=== PATIENT | male | born 1940 | race Caucasian/White ===

== ENCOUNTER 2021-07-25 09:57 | Inpatient (IN) ==
[2021-07-25 10:49] LABS: Basophils # (auto) 0.02 K/uL (0-0.2); Basophils % (auto) 0.3 %; Eosinophils # (auto) 0.14 K/uL (0-0.5); Hematocrit (blood only) 41.9 % (42-52); Hemoglobin 14.1 g/dL (14.0-18.0); Immature Granulocytes # (auto) 0.02 K/uL (0.00-0.02); Immature Granulocytes % (auto) 0.3 %; Lymphocytes # (auto) 1.16 K/uL (1.2-3.4); Lymphocytes % (auto) 16.2 %; Mean Corpuscular Hemoglobin 28.7 pg (25-34); Mean Corpuscular Hgb Conc 33.7 g/dL (32-36); Mean Corpuscular Volume 85.3 fL (80-100); Mean Platelet Volume 7.9 fL (7.4-10.4); Monocytes # (auto) 0.62 K/uL (0.11-0.59); Monocytes % (auto) 8.7 %; Neutrophils # (auto) 5.19 K/uL (1.4-6.5); Neutrophils % (auto) 72.5 %; Platelet Count 285 K/uL (130-400); RDW Coefficient of Variation 14.2 % (11.5-14.5); RDW Standard Deviation 44.6 fL (36.4-46.3); Red Blood Count 4.91 M/uL (4.7-6.1); White Blood Count 7.15 K/uL (4.8-10.8)
[2021-07-25 11:04] LABS: Prothrombin Time 10.9 Seconds (9.0-12.0)
--- NOTE | 2021-07-25 11:12 | XRay Report ---
XR chest 1V portable CLINICAL HISTORY: Atypical chest pain TECHNIQUE: Single frontal radiograph of the chest was obtained. Comparison: None available at the time of this dictation. FINDINGS: No lines and tubes are seen. The cardiac silhouette is partially visualized. Mild leftward midline sh ift is seen. There is partial opacification of the right lung. There is a large right pleural effusio n. IMPRESSION: Large right pleural effusion with leftward midline shift. Partial opacification of the right lung lik bandar represent atelectasis with or without superimposed pneumonia/aspiration. ACT 112: Negative or not required by law. Electronically signed by: Vidal Sethi M.D. 07/25/2021 11:10 AM
[2021-07-25 11:36] LABS: Albumin Level 3.8 gm/dl (3.4-5.0); BUN Creatinine Ratio 16.4 (10-20); Bilirubin,Total 0.6 mg/dl (0.2-1.0); Calcium 9.5 mg/dl (8.5-10.1); Creatinine Clr Calc Pharmacy 45.9 ml/min; Est GFR (Non-African American) 55.3 ml/min; Globulin 3.7 gm/dl (2.5-4.0); Potassium 4.4 mmol/L (3.5-5.1); Total Protein 7.5 gm/dl (6.0-8.3)
[2021-07-25 12:00] LABS: Troponin I 0.03 ng/ml (0-0.04)
--- NOTE | 2021-07-25 12:39 | History & Physical Report ---
Date of Service July 25, 2021 Assessment & Plan (1) Collapse of right lung: (2) Lymphadenopathy: (3) Pleural effusion, right: Plan: - Admit to pcu - Consult pulmonology for further lung workup, possible thoracentesis, biopsy to r/o malignancy - CT abd/pelvis and lung conducted as outpatient earlier today 07/25/21: reviewed in [facility] by myself, and with the patient at bedside. The radiologist with the following impression: Complete collapse of the right upper lobe of the lung with suspected obstruction. Lobulated appearance of the right hilum is suspicious for a mass.2. Extensive lymphadenopathy in the chest, for which metastatic disease must be considered.3. Large right pleural effusion. Suspected plaque-like pleural thickening in the right hemithorax.4. Bilateral, indeterminate renal lesions for which further evaluation with renal protocol CT abdomen with without contrast is recommended.5. Status post bilateral inguinal herniorrhaphies. Findings are compatible with fat containing, bilateral, direct inguinal hernias medial to the postsurgical change. There is bulging of the bladder towards the left inguinal hernia. - Currently on 2 L via NC, sats at 95%, does not wear o2 at baseline - Hx of smoking but quit in the 80s - No alcohol use - Pt would prefer to use [facility] for oncology due to proximity and convenience if needed during this hospital stay - Has had colonoscopies - Consult palliative care (4) Renal lesion: Plan: - Seen on CT as described above, possible mets? consider CT abd w/o contrast to further assess - Cr and BUN stable currently (5) Hernia: Plan: - Noted on imaging, consider consult general surgery with pain worsening x 1 week. No strangulation seen on imaging studies as above. Pain control. Continue bowel regimen to prevent constipation with miralax and dulcolax daily - (6) HTN (hypertension): Plan: - Cont metoprolol 25 mg daily, asa 81 mg daily (7) HLD (hyperlipidemia): Plan: - Cont pravastatin 10 mg daily (8) BPH (benign prostatic hyperplasia): Plan: - Hx of such, cont finasteride, tamsulosin (9) PAT (paroxysmal atrial tachycardia): Plan: - Hx of such, on tele - Recent history of holter monitor submission for this, in process. (10) Mitral valve regurgitation: Plan: - Consider echo, soft murmur on exam DVT ppx: -teds, scds, lovenox subq to start tomorrow, dont give prior to thoracentesis CODE: DNR/DNI Dispo: From home, likely to remain in the hospital x 1-2 days. History of Present Illness Chief Complaint: Shortness of breath, abdominal pain Primary Care Provider: Graham Wilhelm, This is an 81 yo M with PMHx of HTN, HLD, paroxysmal atrial tachycardia, mitral valve regurg, who presents to the ER from outpatient [facility] office due to abnormal findings on CT abd/pelvis. He initially presented to outpatient office today with complaints of abdominal pain with new bulge from a previous hernia repair site, and was complaining of acute lower quadrant pain. He reports that having abdominal pain x1 week, pain worsened 30 minutes after eating, and im proved upon having a bowel movement. Intermittently has issues with constipation. Approximately 1 week ago he was seen in PCPs office for acute shortness of breath, palpitations and felt as if he was going to pass out. Holter monitor was placed on him and he only recently turned that in to have it read, he has had paroxysmal atrial tachycardia on and off throughout his life. Today upon having CT of the abdomen pelvis, new findings of complete right upper lobe collapse was found, large right pleural effusion. Shortness of breath has been progressively increasing over the past 1 week. He reports that he was having difficulty walking to and from different rooms in his house and simple things such as putting on his shoes were difficult. Has a cough with clear thick sputum production, denies hemoptysis. He denies any lightheadedness or dizziness or feeling like he was going to pass out recently however did 1 week ago and that is why Holter monitor was ordered. He denies any issues with eating or drinking, weight loss, or night sweats. His daughter Christi is sitting at bedside. I went over her CT scans with them and showed pictures of his lungs and abdomen and answered all their questions and concerns. Allergies Allergy/AdvReac Type Severity Reaction Status Date / Time No Known Allergies Allergy Mild Verified 07/25/21 11:47 Home Medications Medication Instructions Recorded Confirmed Type Flonase 2 spray DANE DAILY 07/25/21 07/25/21 History aspirin 81 mg tablet,delayed 81 mg PO QAM 07/25/21 07/25/21 History release finasteride 5 mg tablet 5 mg PO QAM 07/25/21 07/25/21 History metoprolol succinate 25 mg 25 mg PO QAM 07/25/21 07/25/21 History tablet,extended release 24 hr omeprazole 40 mg capsule,delayed 40 mg PO DAILY@1800 07/25/21 07/25/21 History release pravastatin 10 mg tablet 10 mg PO QAM 07/25/21 07/25/21 History tamsulosin 0.4 mg capsule 0.4 mg PO DAILY@1800 07/25/21 07/25/21 History Past Med/Surg History Medical History (Updated 07/25/21 @ 16:22 by Roscoe Dozier MD) Abnormal CT scan, chest Surgical History (Updated 07/25/21 @ 12:33 by Bianca Meraz PA-C) H/O right inguinal hernia repair 10/25/2012. Laproscopic repair by Dr. Martel Hx of inguinal hernia repair 05/11/1995 Family History (Updated 07/25/21 @ 12:30 by Bianca Meraz PA-C) Father Cancer Hypertension Mother Cancer Brother Diabetes Stroke Social History Smoking Status: Former smoker Second Hand Exposure: No; Do You Dip or Chew Tobacco: No; Tobacco Cessation Education Requested by Patient: No Hx Alcohol Use: No Hx Substance Use: No Preferred Language: [place] Communication Ability: Effective Daub Color Mixer Required: No Beliefs That Will Affect Care: None Current Living Situation: Family Current Living Situation Comment: With oldest daughter Other Information That Helps Us Care for You: No Feels Safe at Home: Yes Safety Concerns: Feels Safe At This Time Assistive Devices: Denture - Upper, Denture - Lower and Glasses Review of Systems Review of Systems: Constitutional: No fever, sweats or chills Eyes: No diplopia, no worsening or blurred vision ENT: normal hearing, no trouble swallowing Respiratory: As per HPI, shortness of breath with ADLs and exertion but not at rest, + cough, + clear white sputum, no hemoptysis Cardiovascular: No chest pain, tightness or palpitations Abdomen: No pain, nausea, vomiting, diarrhea or constipation Musculoskeletal: No joint pain, calf pain, swelling Neurologic: No weakness, numbness/tingling, or balance problems Psychiatric: No anxiety or depression Skin: No rash or itch Physical Exam Physical Exam: General: awake, alert, no apparent distress, appears younger than stated age Head: Normocephalic, atraumatic ENT: PERRL, EOMI, no pharyngeal exudate, mucous membranes moist Chest: Significantly diminished breath sounds on the right, absent at the base. On 2L via NC. Cardiac: Regular rate and rhythm, +soft murmur, no JVD, normal peripheral pulses, good capillary refill Abdominal: NABS x 4 quadrants, soft, nondistended, + minimal tenderness to palpa tion in Left lower quadrant, no rebound or guarding Extremities: Normal inspection, no peripheral edema or erythema, calfs nontender to palpation Psych: Normal mood and affect Neuro: AAO x 3, strength intact bilaterally and rated 5/5, no motor deficits, speech is clear, no peripheral sensory deficits Results & Data Results & Data ([facility]) Vital Signs (Past 12 Hours) Vital Signs Temp Pulse Pulse Resp BP BP Pulse Ox 07/25/21 11:00 74 18 133/75 95 07/25/21 10:55 76 77 18 131/76 93 07/25/21 10:54 72 21 07/25/21 10:34 87 21 131/76 07/25/21 10:12 36.7 C 87 18 93 Laboratory Results 07/25/21 07/25/21 07/25/21 Unknown 10:51 10:40 WBC RBC Hgb Hct MCV MCH MCHC RDW Std Deviation RDW Coeff of Jay Plt Count MPV Immature Gran % (Auto) Neut % (Auto) Lymph % (Auto) [place] % (Auto) Eos % (Auto) Baso % (Auto) Neut # (Auto) Lymph # (Auto) [place] # (Auto) Eos # (Auto) Baso # (Auto) Immature Gran # (Auto) PT INR Sodium Potassium Chloride Carbon Dioxide Anion Gap BUN Creatinine Est Cr Clr Drug Dosing Est GFR ( Amer) Est GFR (Non-Af Amer) BUN/Creatinine Ratio Glucose Calcium Total Bilirubin AST ALT Alkaline Phosphatase Troponin I B-Natriuretic Peptide 41 Total Protein Albumin Globulin Albumin/Globulin Ratio Lipase Procalcitonin < 0.05 SARS-CoV-2, RNA, NAAT NEGATIVE 07/25/21 07/25/21 07/25/21 10:40 10:40 10:40 WBC 7.15 RBC 4.91 Hgb 14.1 Hct 41.9 L MCV 85.3 MCH 28.7 MCHC 33.7 RDW Std Deviation 44.6 RDW Coeff of Jay 14.2 Plt Count 285 MPV 7.9 Immature Gran % (Auto) 0.3 Neut % (Auto) 72.5 Lymph % (Auto) 16.2 [place] % (Auto) 8.7 Eos % (Auto) 2.0 Baso % (Auto) 0.3 Neut # (Auto) 5.19 Lymph # (Auto) 1.16 L [place] # (Auto) 0.62 H Eos # (Auto) 0.14 Baso # (Auto) 0.02 Immature Gran # (Auto) 0.02 PT 10.9 INR 1.0 Sodium 136 Potassium 4.4 Chloride 102 Carbon Dioxide 28 Anion Gap 6 BUN 20 Creatinine 1.22 Est Cr Clr Drug Dosing 45.9 Est GFR ( Amer) 64.0 Est GFR (Non-Af Amer) 55.3 BUN/Creatinine Ratio 16.4 Glucose 104 H Calcium 9.5 Total Bilirubin 0.6 AST 17 ALT 10 Alkaline Phosphatase 71 Troponin I 0.03 B-Natriuretic Peptide Total Protein 7.5 Albumin 3.8 Globulin 3.7 Albumin/Globulin Ratio 1.0 Lipase 40 Procalcitonin SARS-CoV-2, RNA, NAAT Diagnostic Findings Chest X-Ray 07/25/21 10:39 XR chest 1V portable CLINICAL HISTORY: Atypical chest pain TECHNIQUE: Single frontal radiograph of the chest was obtained. Comparison: None available at the time of this dictation. FINDINGS: No lines and tubes are seen. The cardiac silhouette is partially visualized. Mild leftward midline shift is seen. There is partial opacification of the right lung. There is a large right pleural effusion. IMPRESSION: Large right pleural effusion with leftward midline shift. Partial opacification of the right lung likely represent atelectasis with or without superimposed pneumonia/aspiration. ACT 112: Negative or not required by law. Electronically signed by: Vidal Sethi M.D. 07/25/2021 11:10 AM ECG Additional Comments: 25-JUL-2021 10:31:26 [facility]-EDSTAT ROUTINE RETRIEVAL Poor data quality, interpretation may be adversely affected Sinus rhythm with 1st degree A-V block with Premature supraventricular complexes Possible Anterior infarct , age undetermined Abnormal ECG When compared with ECG of 21-JUL-1996 10:37, Premature supraventricular complexes are now Present NC interval has increased Vent. rate has increased BY [address] no longer elevated in Anterior leads Nonspecific T wave abnormality now evident in Anterior leads 25mm/s10mm/[id number] 241CID: 15Referred by: REFERRED SELF Unconfirmed Vent. rate 86 BPM NC interval 228 ms QRS duration 84 ms QT/QTc 350/418 ms Code Status & VTE Plan Code Status DNR/DNI - Discussed with patient and his daughter at bedside Supervising Physician Co-Signing Physician Notes This is an attending cosign note for full report and documentation please see full note by DARIUS. Patient was seen and examined by myself and agree with assessment and plan. Following is a synopsis. Patient presenting from general surgery's office after patient following up for abdominal pain for hernia repair history. Patient also noted to be complaining of shortness of breath. Patient noted to have collapse of the right lung with pleural effusions and masses concerning for malignancy. Head atraumatic chest diminished on the right side crackles noted. Left lower quadrant tenderness to palpation. Alert and oriented. Nonverbal evaluation. General surgery evaluation. Thoracentesis will be needed. Cytology sent. Oncology consultation. Palliative consultation.
[2021-07-25] MEDS ORDERED: ACETAMINOPHEN 325 MG TAB PO PRN (14:13)
[2021-07-25] MEDS ORDERED: ONDANSETRON INJ 2 MG/ML 2 ML VIAL IV PRN (14:13)
[2021-07-25] MEDS: bisacodyL 5 MG TABEC PO SCH (14:49)
[2021-07-25] MEDS: POLYETHYLENE (MIRALAX) 17 GM PACK PO SCH (14:49)
--- NOTE | 2021-07-25 14:58 | Pulmonary Consultation ---
Date of Consultation July 25, 2021 Assessment & Plan (1) Pleural effusion, right: 2.3 L of pleural fluid was removed from the right hemithorax via thoracentesis today. Pleural fluid will be sent for cytology, cultures and chemistries. Highly suspect malignant lesion. (2) Abnormal CT scan, chest: Patient with large mediastinal adenopathy. Will try to coordinate with anesthesia and perform EBUS tomorrow to obtain further tissue for diagnosis. (3) Collapse of right lung: May need radiation to the right upper lobe given airway narrowing versus airway stent. Airway stent evaluation would need to be completed at a tertiary care center. We will first see clinical response of thoracentesis. Thanks for the consult. Will follow with primary team. History of Present Illness Reason for Consultation: Right upper lobe collapse and large pleural effusion Attending Physician: Henri Abad MD History of Present Illness 81-year-old male with history of paroxysmal atrial tachycardia, mitral valve regurgitation, hypertension hyperlipidemia who presented to the ER from his outpatient primary care provider's office. He presented with abdominal pain to his outpatient office and they ordered a CT abdomen/pelvis. A large right pleural effusion was seen. Dedicated CT chest was obtained which demonstrated right upper lobe airway narrowing and collapse. Large effusion was described. There is also massive subcarinal lymphadenopathy. Patient endorses shortness of breath and cough for the past week. He is a former smoker. Patient actually reports cough for the past week and shortness of breath that has been increasing over the past couple of months. No changes in his weight. Appetite is still good. Labs reviewed. No coagulopathy. Platelets within normal limits. Allergies Allergy/AdvReac Type Severity Reaction Status Date / Time No Known Allergies Allergy Mild Verified 07/25/21 11:47 Home Medications Medication Instructions Recorded Confirmed Type Flonase 2 spray DANE DAILY 07/25/21 07/25/21 History aspirin 81 mg tablet,delayed 81 mg PO QAM 07/25/21 07/25/21 History release finasteride 5 mg tablet 5 mg PO QAM 07/25/21 07/25/21 History metoprolol succinate 25 mg 25 mg PO QAM 07/25/21 07/25/21 History tablet,extended release 24 hr omeprazole 40 mg capsule,delayed 40 mg PO DAILY@1800 07/25/21 07/25/21 History release pravastatin 10 mg tablet 10 mg PO QAM 07/25/21 07/25/21 History tamsulosin 0.4 mg capsule 0.4 mg PO DAILY@1800 07/25/21 07/25/21 History Patient History Medical History (Updated 07/25/21 @ 16:22 by Roscoe Dozier MD) Abnormal CT scan, chest Surgical History (Updated 07/25/21 @ 12:33 by Bianca Meraz PA-C) H/O right inguinal hernia repair 10/25/2012. Laproscopic repair by Dr. Martel Hx of inguinal hernia repair 05/11/1995 Family History (Updated 07/25/21 @ 12:30 by Bianca Meraz PA-C) Father Cancer Hypertension Mother Cancer Brother Diabetes Stroke Social History Smoking Status: Former smoker Second Hand Exposure: No; Do You Dip or Chew Tobacco: No; Tobacco Cessation Education Requested by Patient: No Hx Alcohol Use: No Hx Substance Use: No Preferred Language: Kiswahili Communication Ability: Effective Trimming Department Blocker Required: No Beliefs That Will Affect Care: None Current Living Situation: Family Current Living Situation Comment: With oldest daughter Other Information That Helps Us Care for You: No Feels Safe at Home: Yes Safety Concerns: Feels Safe At This Time Assistive Devices: Denture - Upper, Denture - Lower and Glasses Review of Systems Review of Systems: All systems reviewed & are unremarkable except as noted in HPI & below Results & Data Results & Data ([place]) Vital Signs (Past 12 Hours) Vital Signs Temp Pulse Pulse Resp BP BP BP 07/25/21 14:16 37 C 80 18 161/88 H 07/25/21 13:30 62 21 07/25/21 13:01 75 22 132/95 07/25/21 13:00 72 19 07/25/21 12:31 73 24 151/79 H 07/25/21 12:30 74 17 07/25/21 12:01 75 23 07/25/21 12:00 74 21 133/65 07/25/21 11:30 73 20 135/79 07/25/21 11:00 74 18 133/75 07/25/21 10:55 76 77 18 131/76 07/25/21 10:54 72 21 07/25/21 10:34 87 21 131/76 07/25/21 10:12 36.7 C 87 18 Pulse Ox 07/25/21 14:16 95 07/25/21 13:30 96 07/25/21 13:01 96 07/25/21 13:00 96 07/25/21 12:31 97 07/25/21 12:30 96 07/25/21 12:01 96 07/25/21 12:00 96 07/25/21 11:30 90 07/25/21 11:00 95 07/25/21 10:55 93 07/25/21 10:54 07/25/21 10:34 07/25/21 10:12 93 PG Care Time/CCT Total # of Minutes Spent Total Time Spent with Patient: Total time spent is greater than 50% in coordination of care (as documented) at patient's floor/unit and/or counseling patient: Coding Level of Care Code 00753 Initial Inpt Care Lvl 3 Diagnoses Pleural effusion, right J90 Collapse of right lung J98.[address] scan, chest R93.89
--- NOTE | 2021-07-25 15:17 | Emergency Department Note ---
Impression & Plan Pleural effusion, right, Collapse of right lung, Lymphadenopathy, Dyspnea on minimal exertion, Borderline low oxygen saturation level ED Provider Note NAME: ALEKSANDRA ISAACS AGE: 81 SEX: M ARRIVES VIA: Walk-In INFORMANT: Patient ED PROVIDER(S): Jonah Merrill MD CHIEF COMPLAINT: SOB, referred. Abnormal CT. PLAN: Disposition: Admit MEDICAL DECISION MAKING: The patient is a pleasant 81-year-old gentleman who presents to the emergency department referred from his [facility] PCPs office for outpatient CT scan that demonstrated findings of large right-sided pleural effusion with suspected mediastinal mass and metastatic disease. The study was performed in the setting of the patient having shortness of breath for the past month. Patient denies any fevers, chills, nausea, vomiting, diarrhea or urinary symptoms. He does report having semi-productive cough for the past month.He denies any prior history of cardiac disease or blood clots. He has a remote smoking history. On arrival the patient is fatigued appearing, mildly dyspneic but no acute distress, afebrile stable vital signs. His O2 saturation is 90% and greater though he does become easily dyspneic with minimal exertion and so was placed on 2 L nasal cannula. EKG without overt acute ischemia. Chest x-ray demonstrates large right-sided pleural effusion suspected compressive atelectasis. WBC, Hbg, platelets wnl. Chemistry without acidosis. Electrolytes unremarkable. LFTs without significant abnormality. Troponin 0.03, wnl. BNP wnl. Procalcitonin is undetectable. Covid-19 RNA, NAAT negative. Given the patient's CT findings in the setting of his symptoms he did agree with plan for admission. Case was discussed with Chayo Villegas, [facility] PAC, with Dr. Wheeler [facility] hospitalist who will evaluate the patient for admission. Triage Nursing notes reviewed and agree them. Prior medical records reviewed Vital Signs: reviewed and remarkable for low O2 saturation. Differential diagnosis: Reactive airway disease, pneumonia, pneumothorax, COPD, CHF, infections, cardiac ischemia, pulmonary embolism, musculoskeletal, gastrointestinal, as well as other pathologies. ER treatment provided: See below. Diagnostics interpreted by me: ECG: Sinus rhythm, 75 bpm, PSVCs, nonspecific TWA, no overt ST elevation or depression. Cardiac Monitoring: An order for continuous cardiac monitoring was placed and demonstrated Sinus rhythm, 75 bpm, PSVCs. Laboratory studies: See below Imaging studies: See below Consultation(s): Chayo Villegas, [facility] PAC, with Dr. Wheeler [facility] hospitalist who will evaluate the patient for admission. HPI: The patient is a pleasant 81-year-old gentleman who presents to the emergency department referred from his [facility] PCPs office for outpatient CT scan that demonstrated findings of large right-sided pleural effusion with suspected mediastinal mass and metastatic disease. The study was performed in the setting of the patient having shortness of breath for the past month. Patient denies any fevers, chills, nausea, vomiting, diarrhea or urinary symptoms. He does report having semiproductive cough for the past month.He denies any prior history of cardiac disease or blood clots. He has a remote smoking history. ROS: See above HPI for pertinent positives & negatives. A total of 10 systems reviewed and were otherwise negative. VITALS:See Below PHYSICAL EXAMINATION: GENERAL: Awake, alert, fatigued-appearing, in no distress HENT: Normocephalic, atraumatic. Oropharynx with dry mucous membranes and otherwise unremarkable. EYES: Normal conjunctiva. Sclera non-icteric. NECK: Supple. No nuchal rigidity. FROM. No JVD. RESPIRATORY: Diminished BS of right lung henry. Dyspneic appearing without significant WOB. CARDIAC: Regular rate, normal rhythm. Extremities warm and well perfused. Pulses equal. ABDOMEN: Soft, non-distended. No tenderness to palpation. No rebound or guarding. No masses. RECTAL: Deferred. MUSCULOSKELETAL: Chest examination reveals no tenderness. The back is symmetrical on inspection without obvious abnormality. There is no CVA tenderness to palpation. No joint edema. LOWER EXTREMITIES: Calves are equal size bilaterally and non-tender. No edema. No discoloration. NEURO: Normal sensorium. No sensory or motor deficits noted. SKIN: No rash or jaundice noted. Jonah Merrill MD Past Med/Surg History Medical History Abnormal CT scan, chest BPH (benign prostatic hyperplasia) GERD (gastroesophageal reflux disease) HLD (hyperlipidemia) HTN (hypertension) Mitral valve regurgitation PAT (paroxysmal atrial tachycardia) Surgical History H/O right inguinal hernia repair 10/25/2012. Laproscopic repair by Dr. Martel Hx of inguinal hernia repair 05/11/1995 Family History Father Cancer Hypertension Mother Cancer Brother Diabetes Stroke Social History Smoking Status: Former smoker Second Hand Exposure: No; Do You Dip or Chew Tobacco: No; Tobacco Cessation Education Requested by Patient: No Hx Alcohol Use: No Hx Substance Use: No Preferred Language: Indonesian Communication Ability: Effective Radio Journalist Required: No Beliefs That Will Affect Care: None Current Living Situation: Family Current Living Situation Comment: With oldest daughter Other Information That Helps Us Care for You: No Feels Safe at Home: Yes Safety Concerns: Feels Safe At This Time Assistive Devices: None Allergies Allergies Allergy/AdvReac Type Severity Reaction Status Date / Time No Known Allergies Allergy Mild Verified 07/25/21 11:47 Home Meds Home Medications Medication Instructions Recorded Confirmed Flonase 2 spray DANE DAILY 07/25/21 07/25/21 aspirin 81 mg tablet,delayed 81 mg PO QAM 07/25/21 07/25/21 release finasteride 5 mg tablet 5 mg PO QAM 07/25/21 07/25/21 metoprolol succinate 25 mg 25 mg PO QAM 07/25/21 07/25/21 tablet,extended release 24 hr omeprazole 40 mg capsule,delayed 40 mg PO DAILY@1800 07/25/21 07/25/21 release pravastatin 10 mg tablet 10 mg PO QAM 07/25/21 07/25/21 tamsulosin 0.4 mg capsule 0.4 mg PO DAILY@1800 07/25/21 07/25/21 Results & Data (ED) Vital Signs Vital Signs - 24 hr 07/25/21 10:12 07/25/21 10:34 07/25/21 10:54 Temperature 36.7 C Temperature Source Oral Pulse Rate 87 87 72 Pulse Rate [Apical] Pulse Rate from SpO2 Sensor Pulse Rhythm Pulse Rhythm [Apical] Pulse Strength [Apical] Respiratory Rate 18 21 21 Respiratory Effort / Characteristics Respiratory Depth Respiratory Pattern Blood Pressure 131/76 Blood Pressure [Left Arm] Blood Pressure Mean 94 Blood Pressure Mean [Left Arm] Blood Pressure Position [Left Arm] Pulse Oximetry 93 Oxygen Delivery Method Room Air Oxygen Flow Rate Sepsis Recent Fever Within 48 Hours No Sepsis New/Unexplained Change in Mental Status No Sepsis Action Taken by Nursing No Action Required 07/25/21 10:55 07/25/21 11:00 07/25/21 11:30 Temperature Temperature Source Pulse Rate 76 74 73 Pulse Rate [Apical] 77 Pulse Rate from SpO2 Sensor 75 78 Pulse Rhythm Regular Pulse Rhythm [Apical] Regular Pulse Strength [Apical] Normal Respiratory Rate 18 18 20 Respiratory Effort / Characteristics Non-Labored Spontaneous Respiratory Depth Normal Respiratory Pattern Regular Blood Pressure 133/75 135/79 Blood Pressure [Left Arm] 131/76 Blood Pressure Mean 94 97 Blood Pressure Mean [Left Arm] 94 Blood Pressure Position [Left Arm] Semi-fowlers Pulse Oximetry 93 95 90 Oxygen Delivery Method Room Air Nasal Cannula Oxygen Flow Rate 2 Sepsis Recent Fever Within 48 Hours Sepsis New/Unexplained Change in Mental Status Sepsis Action Taken by Nursing 07/25/21 12:00 07/25/21 12:01 07/25/21 12:30 Temperature Temperature Source Pulse Rate 74 75 74 Pulse Rate [Apical] Pulse Rate from SpO2 Sensor 74 77 71 Pulse Rhythm Pulse Rhythm [Apical] Pulse Strength [Apical] Respiratory Rate 21 23 17 Respiratory Effort / Characteristics Respiratory Depth Respiratory Pattern Blood Pressure 133/65 Blood Pressure [Left Arm] Blood Pressure Mean 87 Blood Pressure Mean [Left Arm] Blood Pressure Position [Left Arm] Pulse Oximetry 96 96 96 Oxygen Delivery Method Oxygen Flow Rate Sepsis Recent Fever Within 48 Hours Sepsis New/Unexplained Change in Mental Status Sepsis Action Taken by Nursing 07/25/21 12:31 Temperature Temperature Source Pulse Rate 73 Pulse Rate [Apical] Pulse Rate from SpO2 Sensor 75 Pulse Rhythm Pulse Rhythm [Apical] Pulse Strength [Apical] Respiratory Rate 24 Respiratory Effort / Characteristics Respiratory Depth Respiratory Pattern Blood Pressure 151/79 H Blood Pressure [Left Arm] Blood Pressure Mean 103 Blood Pressure Mean [Left Arm] Blood Pressure Position [Left Arm] Pulse Oximetry 97 Oxygen Delivery Method Oxygen Flow Rate Sepsis Recent Fever Within 48 Hours Sepsis New/Unexplained Change in Mental Status Sepsis Action Taken by Nursing Laboratory Data Attestation: I reviewed the patient's lab results. Result diagrams: 07/25/21 10:40 07/25/21 10:40 Lab Results 07/25/21 07/25/21 07/25/21 Range/Units 10:40 10:40 10:40 WBC 7.15 (4.8-10.8) K/uL RBC 4.91 (4.7-6.1) M/uL Hgb 14.1 (14.0-18.0) g/dL Hct 41.9 L (42-52) % MCV 85.3 (80-100) fL MCH 28.7 (25-34) pg MCHC 33.7 (32-36) g/dL RDW Std Deviation 44.6 (36.4-46.3) fL RDW Coeff of Jay 14.2 (11.5-14.5) % Plt Count 285 (130-400) K/uL MPV 7.9 (7.4-10.4) fL Immature Gran % (Auto) 0.3 % Neut % (Auto) 72.5 % Lymph % (Auto) 16.2 % [place] % (Auto) 8.7 % Eos % (Auto) 2.0 % Baso % (Auto) 0.3 % Neut # (Auto) 5.19 (1.4-6.5) K/uL Lymph # (Auto) 1.16 L (1.2-3.4) K/uL [place] # (Auto) 0.62 H (0.11-0.59) K/uL Eos # (Auto) 0.14 (0-0.5) K/uL Baso # (Auto) 0.02 (0-0.2) K/uL Immature Gran # (Auto) 0.02 (0.00-0.02) K/uL PT 10.9 (9.0-12.0) Seconds INR 1.0 (0.9-1.1) Sodium 136 (136-145) mmol/L Potassium 4.4 (3.5-5.1) mmol/L Chloride 102 (98-107) mmol/L Carbon Dioxide 28 (21-32) mmol/L Anion Gap 6 (3-11) BUN 20 (6-23) mg/dl Creatinine 1.22 (0.6-1.4) mg/dl Est Cr Clr Drug Dosing 45.9 ml/min Est GFR ( Amer) 64.0 ml/min Est GFR (Non-Af Amer) 55.3 ml/min BUN/Creatinine Ratio 16.4 (10-20) Glucose 104 H (70-99(Fasting)) mg/dl Calcium 9.5 (8.5-10.1) mg/dl Total Bilirubin 0.6 (0.2-1.0) mg/dl AST 17 (13-39) U/L ALT 10 (7-52) U/L Alkaline Phosphatase 71 (34-104) U/L Troponin I 0.03 (0-0.04) ng/ml B-Natriuretic Peptide (0-100) pg/ml Total Protein 7.5 (6.0-8.3) gm/dl Albumin 3.8 (3.4-5.0) gm/dl Globulin 3.7 (2.5-4.0) gm/dl Albumin/Globulin Ratio 1.0 (0.9-2) Lipase 40 (11-82) U/L Procalcitonin (0-0.5) ng/ml 07/25/21 07/25/21 Range/Units 10:40 10:51 WBC (4.8-10.8) K/uL RBC (4.7-6.1) M/uL Hgb (14.0-18.0) g/dL Hct (42-52) % MCV (80-100) fL MCH (25-34) pg MCHC (32-36) g/dL RDW Std Deviation (36.4-46.3) fL RDW Coeff of Jay (11.5-14.5) % Plt Count (130-400) K/uL MPV (7.4-10.4) fL Immature Gran % (Auto) % Neut % (Auto) % Lymph % (Auto) % [place] % (Auto) % Eos % (Auto) % Baso % (Auto) % Neut # (Auto) (1.4-6.5) K/uL Lymph # (Auto) (1.2-3.4) K/uL [place] # (Auto) (0.11-0.59) K/uL Eos # (Auto) (0-0.5) K/uL Baso # (Auto) (0-0.2) K/uL Immature Gran # (Auto) (0.00-0.02) K/uL PT (9.0-12.0) Seconds INR (0.9-1.1) Sodium (136-145) mmol/L Potassium (3.5-5.1) mmol/L Chloride (98-107) mmol/L Carbon Dioxide (21-32) mmol/L Anion Gap (3-11) BUN (6-23) mg/dl Creatinine (0.6-1.4) mg/dl Est Cr Clr Drug Dosing ml/min Est GFR ( Amer) ml/min Est GFR (Non-Af Amer) ml/min BUN/Creatinine Ratio (10-20) Glucose (70-99(Fasting)) mg/dl Calcium (8.5-10.1) mg/dl Total Bilirubin (0.2-1.0) mg/dl AST (13-39) U/L ALT (7-52) U/L Alkaline Phosphatase (34-104) U/L Troponin I (0-0.04) ng/ml B-Natriuretic Peptide 41 (0-100) pg/ml Total Protein (6.0-8.3) gm/dl Albumin (3.4-5.0) gm/dl Globulin (2.5-4.0) gm/dl Albumin/Globulin Ratio (0.9-2) Lipase (11-82) U/L Procalcitonin < 0.05 (0-0.5) ng/ml Administered Medications Bisacodyl (Bisacodyl 5 Mg Tabec) 5 mg PO DAILY MALLORY Stop: 08/24/21 14:12 Last Admin: 07/25/21 14:49 Dose: 5 mg Documented by: [id number] Pantoprazole Sodium (Pantoprazole 40 Mg Tab) 40 mg PO DAILY@1800 [facility] Stop: 08/24/21 17:59 Last Admin: 07/25/21 17:00 Dose: 40 mg Documented by: [id number] Polyethylene Glycol (Polyethylene (Miralax) 17 Gm Pack) 17 gm PO DAILY MALLORY Stop: 08/24/21 14:12 Last Admin: 07/25/21 14:49 Dose: 17 gm Documented by: [id number] Tamsulosin HCl (Tamsulosin Hcl 0.4 Mg Cap) 0.4 mg PO DAILY@1800 [facility] Stop: 08/24/21 17:59 Last Admin: 07/25/21 17:00 Dose: 0.4 mg Documented by: [id number] Imaging Data Radiologist's Impression: Chest X-Ray 07/25/21 10:39 XR chest 1V portable CLINICAL HISTORY: Atypical chest pain TECHNIQUE: Single frontal radiograph of the chest was obtained. Comparison: None available at the time of this dictation. FINDINGS: No lines and tubes are seen. The cardiac silhouette is partially visualized. Mild leftward midline shift is seen. There is partial opacification of the right lung. There is a large right pleural effusion. IMPRESSION: Large right pleural effusion with leftward midline shift. Partial opacification of the right lung likely represent atelectasis with or without superimposed pneumonia/aspiration. ACT 112: Negative or not required by law. Electronically signed by: Vidal Sethi M.D. 07/25/2021 11:10 AM Discharge Plan Visit Data Chief Complaint: Abnormal Labs/Diagnostic Testing Stated Complaint: IRREGULAR CAT SCAN ED Provider: Jonah Merrill Discharge Problem: Pleural effusion, right, Collapse of right lung, Lymphadenopathy, Dyspnea on minimal exertion, Borderline low oxygen saturation level Patient Disposition: Admitted As Inpatient Discharge Instructions Interventions: ED Discharge Assessment Last Done: 07/25/21 13:57
--- NOTE | 2021-07-25 16:14 | Procedure Note ---
Procedure Note Date of Service July 25, 2021 Note Procedure: Diagnostic and/or therapeutic RIGHT ultrasound-guided catheter thoracentesis 2.3L fluid removed Power Press Tender: Dr. Roscoe Dozier Indication: Pleural effusion Consent: Signed by patient and verified with timeout prior to procedure Anesthesia: 8 mL's of 1% lidocaine without epinephrine given locally Procedure: Consent was verified and timeout performed. Appropriate imaging studies were reviewed prior to the procedure. Patient was placed in a semi-recumbent and limited thoracic ultrasound was performed of the right chest. See separate imaging. The site appropriate for thoracentesis was selected. The skin was prepped and draped in normal sterile fashion. Lidocaine was used for local analgesia. Fluid was aspirated via the finder needle. A small skin leonila was made with the scalpel and the catheter over the needle apparatus was advanced over the rib into the pleural space. Using the syringe one-way valve system, a total of 2300 mL's of pleural fluid was removed. Procedure was terminated due to coughing. The catheter was removed and observed to be intact. A sterile dressing was applied. Post procedure chest x-ray was ordered. Fluid was sent for LDH, total protein, cell count, glucose, pH, cytology, gram stain and culture and fungal cultures. The patient tolerated the procedure well without obvious complication. Coding CPT Codes Pulmonary/Thoracic - Pulmonary and Thoracic: 83051 Thoracentesis w imaging ([id number]) [facility] [place] Procedure Codes (Charges) Pulmonary/Thoracic Procedure 1: Pulmonary and Thoracic: 66216 Thoracentesis w imaging
--- NOTE | 2021-07-25 16:47 | XRay Report ---
XR chest 1V portable HISTORY: 81 years-old Male right thoracentesis status post right-sided thoracentesis COMPARISON: Chest radiograph of same day at 10:27 AM TECHNIQUE: Portable AP view of the chest FINDINGS: Cardiac silhouette is enlarged. Calcified plaque of the thoracic aorta. Trace left pleural effusion. Moderate right pleural effusion has decreased in size status post thoracentesis. No definite postproc edural pneumothorax identified. There is improved aeration of the lung with findings suggestive of ri ght upper lobe collapse. Persistent right basilar densities. Degenerative changes of the shoulders an d spine. IMPRESSION: 1. Moderate-sized right pleural effusion has decreased in size status post thoracentesis. No postproc edural pneumothorax identified. 2. Improved aeration of the right lung with right upper lobe collapse. 3. Cardiomegaly. ACT 112: Negative or not required by law. The above report was generated using voice recognition software. It may contain grammatical, syntax o r spelling errors. Electronically signed by: Robbin Snyder M.D. 07/25/2021 4:45 PM
[2021-07-25 16:55] LABS: Total Protein Pleural Fluid 4.4 gm/dl
[2021-07-25] MEDS: PANTOprazole 40 MG TAB PO SCH (17:00)
[2021-07-25] MEDS: TAMSULOSIN HCL 0.4 MG CAP PO SCH (17:00)
[2021-07-25 19:40] LABS: Appearance Pleural Fluid BLOODY; Color Pleural Fluid RED; RBC Pleural Fluid (A) 25000 /uL; Source Pleural Fluid RIGHT LUNG; WBC Pleural Fluid (A) 2309 /uL
[2021-07-25 19:41] LABS: Basophils, Fluid 0 %; Eosinophils, Fluid 0 %; Lymphocytes, Fluid 49 %; Mono,Macrophage,Mesothelial 46 %; Neutrophils, Fluid 5 %
[2021-07-26] MEDS: ENOXAPARIN INJ 40 MG/0.4 ML SYR SQ SCH (07:56)
[2021-07-26 08:00] LABS: Hematocrit (blood only) 39.4 % (42-52); Mean Corpuscular Hemoglobin 28.2 pg (25-34); Mean Corpuscular Volume 85.5 fL (80-100); Mean Platelet Volume 8.1 fL (7.4-10.4); Platelet Count 277 K/uL (130-400); RDW Coefficient of Variation 14.4 % (11.5-14.5); RDW Standard Deviation 45.3 fL (36.4-46.3); Red Blood Count 4.61 M/uL (4.7-6.1); White Blood Count 6.71 K/uL (4.8-10.8)
[2021-07-26] MEDS: FLUTICASONE PROPIONATE NA SPR 16 GM BTL NAE SCH (08:06)
[2021-07-26] MEDS: FINASTERIDE 5 MG TAB PO SCH (08:06)
[2021-07-26] MEDS: PRAVASTATIN SOD 10 MG TAB PO SCH (08:06)
[2021-07-26] MEDS: METOPROLOL SUCC 25MG EXT REL TAB PO SCH (08:06)
[2021-07-26] MEDS: ASPIRIN 81 MG ECTAB PO SCH (08:06)
[2021-07-26] MEDS: POLYETHYLENE (MIRALAX) 17 GM PACK PO SCH (08:07)
[2021-07-26] MEDS: bisacodyL 5 MG TABEC PO SCH (08:13)
--- NOTE | 2021-07-26 08:19 | Pulmonology Progress Note ---
Date of Service July 26, 2021 Assessment & Plan (1) Pleural effusion, right: Plan: 2.3 L of pleural fluid was removed from the right hemithorax via thoracentesis 07/26. Pleural fluid cyto pending. Studies consistent with exudate. Can consider repeating thora vs pleurx cath placement in the future if rapid recurrrence. (2) Abnormal CT scan, chest: Plan: Patient with large mediastinal adenopathy. Unable to coordinate bronchoscopy today due to scheduling issues. If further tissue needed, can do EBUS as outpatient. RUL atelectasis seen and airway compression. Suspect this is due to tumor burden. Medical oncology consulted due to high suspicion of lung cancer. (3) Collapse of right lung: Plan: May need radiation to the right upper lobe given airway narrowing versus airway stent. Airway stent evaluation would need to be completed at a tertiary care center. Dyspnea improved substantially with thoracentesis. (4) Dyspnea: Plan: Multifactorial from lung ca, pleural effusion, RUL collapse and deconditioning. Oxygen qualification to be done prior to discharge. Plan: Thanks for the consult. Will follow with primary team. Admission and Anticipated Discharge Date Admission Date: July 25, 2021 Subjective Shortness of breath substantially improved compared to yesterday. No chest pain, fevers, chills or night sweats. Review of Systems Review of Systems: All systems reviewed & are unremarkable except as noted in HPI & below Physical Exam Constitutional: WD/WN, vitals as above Eyes: PERRL, conjunctivae normal, anicteric sclerae Respiratory: Dimished on the right. Clear on the left Cardiovascular: RRR, no murmur, no edema Gastrointestinal (Abdomen): normal bowel sounds, soft, nontender, no hepatosplenomegaly Neurologic: PERRL, EOMI, accommodation nl, no face palsy, no dysarthria Psychiatric: A+Ox3, euthymic affect Results & Data Results & Data ([facility]) Vital Signs (Past 12 Hours) Vital Signs Temp Pulse Pulse Resp BP Pulse Ox 07/26/21 07:57 37 C 80 18 138/72 94 07/26/21 02:41 36.6 C 71 16 113/63 92 07/25/21 23:49 68 07/25/21 23:01 36.9 C 70 16 128/68 92 07/25/21 20:15 36.9 C 70 16 119/90 93 PG Care Time/CCT Total # of Minutes Spent Total Time Spent with Patient: Total time spent is greater than 50% in coordination of care (as documented) at patient's floor/unit and/or counseling patient: Coding Level of Care Code 21816 Subseq Hosp Care Lvl 3 Diagnoses Pleural effusion, right J90 Abnormal CT scan, chest R93.89 Collapse of right lung J98.11 Dyspnea R06.00
[2021-07-26 08:31] LABS: Albumin Globulin Ratio 1.1 (0.9-2); Albumin Level 3.3 gm/dl (3.4-5.0); BUN Creatinine Ratio 16.8 (10-20); Bilirubin,Total 0.7 mg/dl (0.2-1.0); Creatinine Clr Calc Pharmacy 49.6 ml/min; Est GFR (African American) 70.3 ml/min; Est GFR (Non-African American) 60.6 ml/min; Globulin 3.1 gm/dl (2.5-4.0); Potassium 3.9 mmol/L (3.5-5.1); Total Protein 6.4 gm/dl (6.0-8.3)
--- NOTE | 2021-07-26 10:37 | Hospitalist Progress Note ---
Date of Service July 26, 2021 Assessment & Plan (1) Collapse of right lung: (2) Lymphadenopathy: (3) Pleural effusion, right: Plan: Patient presented from outpatient office for abnormal CT where he was being evaluated for left sided abdominal pain for 1 week and dyspnea for about 1 month - CT abd/pelvis and lung conducted as outpatient 07/25/21: Complete collapse of the right upper lobe of the lung with suspected obstruction. Lobulated appearance of the right hilum is suspicious for a mass.2. Extensive lymphadenopathy in the chest, for which metastatic disease must be considered.3. Large right pleural effusion. Suspected plaque-like pleural thickening in the right hemithorax.4. Bilateral, indeterminate renal lesions for which further evaluation with renal protocol CT abdomen with without contrast is recommended.5. Status post bilateral inguinal herniorrhaphies. Findings are compatible with fat containing, bilateral, direct inguinal hernias medial to the postsurgical change. There is bulging of the bladder towards the left inguinal hernia. Hx of smoking but quit in the 80s No alcohol use Pt would prefer to use [facility] for oncology due to proximity and convenience if needed during this hospital stay S/p Thoracentesis by Weave Room Supervisor yesterday with removal of 2.3L Fluid appear exudative per analysis Follow up cytology Post thoracentesis XR show improved aeration of right lung Incentive spirometry and flutter Will follow up statistician about any plans for biopsy if needed Patient will need oncology outpatient follow up on discharge Will need 2 step prior to dc (4) Renal lesion: Plan: - Seen on CT as described above, possible mets? - Cr and BUN stable currently (5) Hernia: Plan: Noted on imaging No strangulation seen on imaging studies as above. Monitor. No abdominal complaints and normal abd exam this morning (6) HTN (hypertension): Plan: - Cont metoprolol 25 mg daily, asa 81 mg daily (7) HLD (hyperlipidemia): Plan: - Cont pravastatin 10 mg daily (8) BPH (benign prostatic hyperplasia): Plan: - Hx of such, cont finasteride, tamsulosin (9) PAT (paroxysmal atrial tachycardia): Plan: - Hx of such, on tele - Recent history of holter monitor submission for this, in process. (10) Mitral valve regurgitation: Plan: Old Echo reviewed from 02/2020 showed EF of 60-64, mildly enlarged LA, mild MR and TR DVT ppx: Lovenox CODE: DNR/DNI Admission and Anticipated Discharge Date Admission Date: July 25, 2021 Subjective Patient seen and examined Reports abdominal pain is currently resolved Denied any nausea, vomiting, diarrhea, constipation Reports exertional dyspnea is improved since thoracentesis. Still has cough but improved Denied any chest pain, shortness of breath at rest Denied fever, chills Denied dysuria, freq, urgency, hematuria Physical Exam Constitutional: + well hydrated; no acute distress Eyes: PERRL, conjunctivae normal, anicteric sclerae ENMT: external ear and nose normal, oropharynx normal Respiratory: Normal respiration. Not in distress. Reduced breath sounds Right lower lung zone posteriorly. Cardiovascular: Rate/Rhythm: regular rate and regular rhythm S1 S2 Gastrointestinal (Abdomen): normal bowel sounds, soft, nontender, no hepatosplenomegaly Musculoskeletal: no cyanosis or clubbing, extremities motor strength 5/5 Neurologic: PERRL, EOMI, accommodation nl, no face palsy, no dysarthria Psychiatric: A+Ox3, euthymic affect Results & Data Results & Data ([facility]) Vital Signs (Past 12 Hours) Vital Signs Temp Pulse Pulse Resp BP Pulse Ox 07/26/21 10:11 65 07/26/21 07:57 37 C 80 18 138/72 94 07/26/21 02:41 36.6 C 71 16 113/63 92 07/25/21 23:49 68 07/25/21 23:01 36.9 C 70 16 128/68 92 Laboratory Results Abnormal lab results 07/25/21 07/25/21 07/25/21 Range/Units 10:40 10:40 16:00 RBC (4.7-6.1) M/uL Hgb (14.0-18.0) g/dL Hct 41.9 L (42-52) % Lymph # (Auto) 1.16 L (1.2-3.4) K/uL [place] # (Auto) 0.62 H (0.11-0.59) K/uL Glucose 104 H (70-99(Fasting)) mg/dl Albumin (3.4-5.0) gm/dl Pleural pH 7.42 H (7.3-7.4) 07/26/21 07/26/21 Range/Units 07:12 07:12 RBC 4.61 L (4.7-6.1) M/uL Hgb 13.0 L (14.0-18.0) g/dL Hct 39.4 L (42-52) % Lymph # (Auto) (1.2-3.4) K/uL [place] # (Auto) (0.11-0.59) K/uL Glucose (70-99(Fasting)) mg/dl Albumin 3.3 L (3.4-5.0) gm/dl Pleural pH (7.3-7.4)
--- NOTE | 2021-07-26 12:43 | Palliative Care Consultation ---
Date of Consultation July 26, 2021 Assessment & Plan (1) Dyspnea: improved with pleuracentesis (2) Palliative care encounter: I talked with Mr. Boo about how he is coping with the news that he likely has lung cancer. He is obviously still adjusting to this and is anxious for cytology to provide more information. I asked him if he had ever thought about what he would or wouldn't want for his care if he were seriously ill. He told me that he had thought about it around 2014 when his with dementia. He and his daughters cared for her at home and at that time completed POA paperwork for her. He notes that he did not do the same for him at that time. He has been talking with his daughters and has plans to sit down with them at home after discharge and discuss his goals of care. He would want both of them to make decisions on his behalf if he is unable to do so. We talked about medical POA and that his daughter's would be his surrogate decision makers even without POA for medical decisions. We discussed some things to facilitate their conversation and trying to frame it with the idea of what is really important to him. I suggested that he write down 3-5 things that are most important to him as these can often be helpful in guiding decisions that are not clearly defined in a living will. He feels comfortable discussing this with his daughters and is confident that they are willing and able to follow through with his decisions. He lives with is older daughter and feels that things are manageable at home at this time. (3) Abnormal CT scan, chest: History of Present Illness Reason for Consultation: goals of care Requesting Physician: FELECIA Guo Attending Physician: Airam Ward MD History of Present Illness 81 yo gentleman with history of atrial fibrillation, mitral regurgitation, hypertension and hyperlipidemia. He had been seeing his PCP for LLQ abdominal pain and also was noting fatigue. He describes being able to do something but then needing to sit and rest afterward. He did have some dyspnea with exertion. During workup he was found on CT to have a large right pleural effusion and was tapped for 2.3 L of exudative fluid. Cytology is pending. He was also found to have a right hilar mass measuring 4.8 x 3 cm and mediastinal lymphadenopathy measuring 4.8 x 6.7 cm and 4.8 x 3 cm. He has some narrowing of his RUL bronchus. He tells me that he feels better after pleuracentesis and is less short of breath. Per RN, he was able to ambulate in hallway without dyspnea or desaturation. Allergies Allergy/AdvReac Type Severity Reaction Status Date / Time No Known Allergies Allergy Mild Verified 07/25/21 11:47 Home Medications Medication Instructions Recorded Confirmed Type Flonase 2 spray DANE DAILY 07/25/21 07/25/21 History aspirin 81 mg tablet,delayed 81 mg PO QAM 07/25/21 07/25/21 History release finasteride 5 mg tablet 5 mg PO QAM 07/25/21 07/25/21 History metoprolol succinate 25 mg 25 mg PO QAM 07/25/21 07/25/21 History tablet,extended release 24 hr omeprazole 40 mg capsule,delayed 40 mg PO DAILY@1800 07/25/21 07/25/21 History release pravastatin 10 mg tablet 10 mg PO QAM 07/25/21 07/25/21 History tamsulosin 0.4 mg capsule 0.4 mg PO DAILY@1800 07/25/21 07/25/21 History Patient History Medical History Abnormal CT scan, chest BPH (benign prostatic hyperplasia) Dyspnea GERD (gastroesophageal reflux disease) HLD (hyperlipidemia) HTN (hypertension) Mitral valve regurgitation PAT (paroxysmal atrial tachycardia) Surgical History H/O right inguinal hernia repair 10/25/2012. Laproscopic repair by Dr. Martel Hx of inguinal hernia repair 05/11/1995 Family History Father Cancer Hypertension Mother Cancer Brother Diabetes Stroke Social History Smoking Status: Former smoker Second Hand Exposure: No; Do You Dip or Chew Tobacco: No; Tobacco Cessation Education Requested by Patient: No Hx Alcohol Use: No Hx Substance Use: No Preferred Language: Egyptian Communication Ability: Effective Hand I Tube Bender Required: No Beliefs That Will Affect Care: None Current Living Situation: Family Current Living Situation Comment: With oldest daughter Other Information That Helps Us Care for You: No Feels Safe at Home: Yes Safety Concerns: Feels Safe At This Time Assistive Devices: None Review of Systems Review of Systems: [place] Symptom Assessment Scale Pain 0/3 Dyspnea 0/3 Fatigue 1/3 Anorexia 0/3 Drowsiness 0/3 Palliaitive Performance Score 60-70% Physical Exam Constitutional: no acute distress appears younger than stated age ENMT: Mouth: oral mucous membranes not dry Respiratory: normal respiratory effort; no labored breathing Musculoskeletal: Extremities: extremities normal to inspection Neurologic: moves all extremities and awake; not confused Psychiatric: Orientation: oriented x 3 Results & Data ([facility]) Vital Signs (Past 12 Hours) Vital Signs Temp Pulse Pulse Pulse Pulse Pulse Resp 07/26/21 11:15 98.6 F 73 16 07/26/21 10:26 95 H 83 82 07/26/21 10:11 65 07/26/21 07:57 98.6 F 80 18 07/26/21 02:41 97.9 F 71 16 Resp Resp Resp BP BP Pulse Ox Pulse Ox 07/26/21 11:15 125/71 94 07/26/21 10:26 26 H 22 22 94 07/26/21 10:11 07/26/21 07:57 138/72 94 07/26/21 02:41 113/63 92 Pulse Ox Pulse Ox 07/26/21 11:15 07/26/21 10:26 94 95 07/26/21 10:11 07/26/21 07:57 07/26/21 02:41 PG Care Time/CCT Total # of Minutes Spent Total Time Spent: 55 Total Time Spent with Patient: Total time spent is greater than 50% in coordination of care (as documented) at patient's floor/unit and/or counseling patient: goals of care, surrogate decision maker, patient education and support Coding Level of Care Code 96872 Initial Inpt Care Lvl 2 Diagnoses Dyspnea R06.[address] scan, chest R93.89 Palliative care encounter Z51.5
--- NOTE | 2021-07-26 17:43 | Consultation Report ---
DATE OF SERVICE: 07/26/2021. REASON FOR CONSULTATION: Suspected lung cancer. HISTORY OF PRESENT ILLNESS: The patient is a very pleasant 81-year-old gentleman who has a medical history significant for hypertension, mitral valve regurgitation and was recently diagnosed with right lung mass. The patient had been advised to present to the ER on 07/25/[address] CAP. He had initially presented to his PCP complaining of abdominal pain and shortness of breath for which CT was ordered. CT chest, abdomen and pelvis performed on 07/25/2021 revealed complete collapse of right upper lobe of the lung with suspected obstruction, lobulated appearance of the right hilum suspicious for mass, extensive lymphadenopathy in the chest, for which metastatic disease must be considered, large right pleural effusion with suspected plaque-like pleural thickening in the right hemithorax as well as bilateral indeterminate renal lesions for which further evaluation with renal protocol CT abdomen and pelvis was recommended. The patient was then advised to present to the emergency room as he had complained of shortness of breath as well. He was evaluated by Dr. Dozier of pulmonary who performed a thoracentesis on 07/25/2021 with removal of 2.3 liters of pleural fluid with preliminary cytology suggestive of possible adenocarcinoma of the lung. During my evaluation of patient today, he states that shortness of breath has improved. Denies cough, chest pain, significant weight loss, nausea, vomiting or any other issues. He indicates that he had more than [id number] history of smoking, but quit in 1988. PAST MEDICAL HISTORY: 1. Hypertension. 2. Hyperlipidemia. 3. Paroxysmal atrial tachycardia. PAST SURGICAL HISTORY: Right inguinal hernia repair. MEDICATIONS PRIOR TO ADMISSION: Aspirin, finasteride, metoprolol, omeprazole, pravastatin, tamsulosin and Flonase. ALLERGIES: No known drug allergies. SOCIAL HISTORY: Has more than 65-[id number]-[id number] history of smoking. Quit in 1988. Denies alcohol or illicit drug use. FAMILY HISTORY: Significant for gastric cancer in his father. REVIEW OF SYSTEMS: CONSTITUTIONAL: Denies weight loss, fever, chills, or night sweats. CARDIOVASCULAR: Denies chest pain, palpitations, dizziness, or diaphoresis. RESPIRATORY: Endorses shortness of breath. Denies hemoptysis or cough. GASTROINTESTINAL: Denies diarrhea, hematemesis, melena, nausea, vomiting or dyspepsia. GENITOURINARY: Denies any urinary changes. NEUROLOGIC: Denies headaches, dizziness, or weakness. LYMPHATICS AND HEMATOLOGIC: Denies new adenopathy or abnormal bleeding. MUSCULOSKELETAL: Denies new joint or back pain. PHYSICAL EXAMINATION: VITAL SIGNS: Blood pressure 122/79, heart rate 70, respiratory rate 18, temperature 37.0 degrees, oxygen saturation 93% on room air. HEENT: Eyes were without conjunctival erythema/icterus. RESPIRATORY: Lung sounds were diminished in lower right lung field. Left lung sounds were clear. CARDIOVASCULAR: Heart was regular rate and rhythm without significant murmur, gallops, or rubs. GASTROINTESTINAL: Abdomen was soft with normal bowel sounds. No palpable hepatosplenomegaly. LYMPHATIC SYSTEM: Fullness in the right cervical/neck region. No other palpable lymphadenopathy. EXTREMITIES: Negative for edema. LABORATORY FINDINGS: From 07/26/2021, nonsignificant with normal CBC and chemistry. IMAGING STUDIES: CT chest, abdomen and pelvis on 07/25/2021. IMPRESSION: 1. Complete collapse of right upper lobe of the lung with suspected obstruction. Lobulated appearance of the right hilum suspicious for mass. 2. Extensive lymphadenopathy in the chest, for which metastatic disease must be considered. 3. Large right pleural effusion. Suspected plaque-like pleural thickening in the right hemithorax. 4. Bilateral, indeterminate renal lesions for which further evaluation with renal protocol CT abdomen with and without contrast recommended. 5. Status post bilateral inguinal herniorrhaphies. IMPRESSION: 1. Right lung mass suspicious for malignancy. 2. Extensive mediastinal/hilar lymphadenopathy. 3. Malignant right pleural effusion. 4. Bilateral indeterminate renal lesions. Very pleasant 81-year-old gentleman with good performance status, who was recently found to have malignant-appearing right lung mass with extensive mediastinal/hilar adenopathy as well as malignant right pleural effusion. 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 Discussed my thoughts with the patient. I explained to him that I would recommend awaiting final cytology/pathology report in order to establish diagnosis. If final cytology report is consistent with adenocarcinoma of the lung, treatment options would depend on molecular/PD-L1 status. While awaiting final pathology report, I would recommend obtaining brain MRI for staging purposes. I will plan to see the patient back in Oncology clinic on discharge from hospital in about one week to discuss final pathology results.Will also obtain PET/CT for full staging at that time. He patient indicated that he would want active treatment for lung malignancy. PLAN: 1. Recommend obtaining a brain MRI for staging purposes. 2. Will await final cytology/pathology report. 3. Patient will follow up with me in Oncology clinic upon discharge from hospital to discharge final cytology results as well as potential treatment options. Will plan to obtain PET/CT during that visit. Thank you for this consult. Oncology will follow patient upon discharge from hospital. Please feel free to call if you have any further questions. Job ID: [id number] RUIZ
[2021-07-26] MEDS: TAMSULOSIN HCL 0.4 MG CAP PO SCH (17:57)
[2021-07-26] MEDS: PANTOprazole 40 MG TAB PO SCH (17:57)
--- NOTE | 2021-07-26 17:59 | Electrocardiogram Report ---
Test Reason : Blood Pressure : / mmHG Vent. Rate : 086 BPM Atrial Rate : 086 BPM P-R Int : 228 ms QRS Dur : 084 ms QT Int : 350 ms P-R-T Axes : 086 012 043 degrees QTc Int : 418 ms Poor data quality, interpretation may be adversely affected Sinus rhythm with 1st degree A-V block with Premature supraventricular complexes Possible Anterior infarct , age undetermined Abnormal ECG When compared with ECG of 21-JUL-1996 10:37, Premature supraventricular complexes are now Present CO interval has increased Vent. rate has increased BY [address] no longer elevated in Anterior leads Nonspecific T wave abnormality now evident in Anterior leads Confirmed by Jake Mckeon ([id number]) on 07/26/2021 5:58:58 PM Referred By: REFERRED SELF Confirmed By:Jake Mckeon
[2021-07-26] MEDS ORDERED: LORazepam 0.5 MG TAB PO ONE (18:06)
[2021-07-27 07:53] LABS: Hematocrit (blood only) 41.1 % (42-52); Hemoglobin 13.4 g/dL (14.0-18.0); Mean Corpuscular Hgb Conc 32.6 g/dL (32-36); Mean Corpuscular Volume 85.8 fL (80-100); Mean Platelet Volume 8.4 fL (7.4-10.4); Platelet Count 255 K/uL (130-400); RDW Coefficient of Variation 14.2 % (11.5-14.5); RDW Standard Deviation 44.6 fL (36.4-46.3); Red Blood Count 4.79 M/uL (4.7-6.1)
[2021-07-27 08:21] LABS: BUN Creatinine Ratio 18.1 (10-20); Creatinine Clr Calc Pharmacy 48.3 ml/min; Est GFR (African American) 68.1 ml/min; Est GFR (Non-African American) 58.7 ml/min; Potassium 4.1 mmol/L (3.5-5.1)
[2021-07-27] MEDS: ASPIRIN 81 MG ECTAB PO SCH (09:03)
[2021-07-27] MEDS: FLUTICASONE PROPIONATE NA SPR 16 GM BTL NAE SCH (09:03)
[2021-07-27] MEDS: FINASTERIDE 5 MG TAB PO SCH (09:03)
[2021-07-27] MEDS: PRAVASTATIN SOD 10 MG TAB PO SCH (09:03)
[2021-07-27] MEDS: POLYETHYLENE (MIRALAX) 17 GM PACK PO SCH (09:03)
[2021-07-27] MEDS: METOPROLOL SUCC 25MG EXT REL TAB PO SCH (09:04)
[2021-07-27] MEDS: ENOXAPARIN INJ 40 MG/0.4 ML SYR SQ SCH (09:06)
[2021-07-27] MEDS: bisacodyL 5 MG TABEC PO SCH (09:07)
--- NOTE | 2021-07-27 12:25 | Discharge Summary ---
Date of Service July 27, 2021 Admission HPI Per Admitting Provider This is an 81 yo M with PMHx of HTN, HLD, paroxysmal atrial tachycardia, mitral valve regurg, who presents to the ER from outpatient [facility] office due to abnormal findings on CT abd/pelvis. He initially presented to outpatient office today with complaints of abdominal pain with new bulge from a previous hernia repair site, and was complaining of acute lower quadrant pain. He reports that having abdominal pain x1 week, pain worsened 30 minutes after eating, and improved upon having a bowel movement. Intermittently has issues with constipation. Approximately 1 week ago he was seen in PCPs office for acute shortness of breath, palpitations and felt as if he was going to pass out. Holter monitor was placed on him and he only recently turned that in to have it read, he has had paroxysmal atrial tachycardia on and off throughout his life. Today upon having CT of the abdomen pelvis, new findings of complete right upper lobe collapse was found, large right pleural effusion. Shortness of breath has been progressively increasing over the past 1 week. He reports that he was having difficulty walking to and from different rooms in his house and simple things such as putting on his shoes were difficult. Has a cough with clear thick sputum production, denies hemoptysis. He denies any lightheadedness or dizziness or feeling like he was going to pass out recently however did 1 week ago and that is why Holter monitor was ordered. He denies any issues with eating or drinking, weight loss, or night sweats. His daughter Christi is sitting at bedside. I went over her CT scans with them and showed pictures of his lungs and abdomen and answered all their questions and concerns. Admission Exam Per Admitting Provider General: awake, alert, no apparent distress, appears younger than stated age Head: Normocephalic, atraumatic ENT: PERRL, EOMI, no pharyngeal exudate, mucous membranes moist Chest: Significantly diminished breath sounds on the right, absent at the base. On 2L via NC. Cardiac: Regular rate and rhythm, +soft murmur, no JVD, normal peripheral pulses, good capillary refill Abdominal: NABS x 4 quadrants, soft, nondistended, + minimal tenderness to palpation in Left lower quadrant, no rebound or guarding Extremities: Normal inspection, no peripheral edema or erythema, calfs nontender to palpation Psych: Normal mood and affect Neuro: AAO x 3, strength intact bilaterally and rated 5/5, no motor deficits, speech is clear, no peripheral sensory deficits Principal Diagnosis Right lung collapse Right lung mass suspicious for malignancy Right pleural effusion Status post thoracentesis Discharge Exam Constitutional + well hydrated; no acute distress Eyes PERRL, conjunctivae normal, anicteric sclerae ENMT external ear and nose normal, oropharynx normal Respiratory Normal respiration, not in distress Diminished breath sounds on right lower lung zone Cardiovascular Rate/Rhythm: regular rate and regular rhythm S1 S2 Gastrointestinal (Abdomen) normal bowel sounds, soft, nontender, no hepatosplenomegaly Musculoskeletal no cyanosis or clubbing, extremities motor strength 5/5 Neurologic PERRL, EOMI, accommodation nl, no face palsy, no dysarthria Psychiatric A+Ox3, euthymic affect Discharge Data Allergies Allergy/AdvReac Type Severity Reaction Status Date / Time No Known Allergies Allergy Mild Verified 07/25/21 11:47 Consultations 07/25/21 12:38 ED Decision to Admit Stat 07/25/21 13:29 Consult Palliative Care Routine 07/25/21 14:13 Consult Pulmonology Routine 07/26/21 08:11 Consult Oncology Routine Ordered Studies 07/25/21 14:54 US point of care ultrasound Urgent Hospital Course (1) Collapse of right lung: (2) Lymphadenopathy: (3) Pleural effusion, right: Patient presented from outpatient office for abnormal CT where he was being evaluated for left sided abdominal pain for 1 week and dyspnea for about 1 month - CT abd/pelvis and lung conducted as outpatient 07/25/21: Complete collapse of the right upper lobe of the lung with suspected obstruction. Lobulated appearance of the right hilum is suspicious for a ma ss.2. Extensive lymphadenopathy in the chest, for which metastatic disease must be considered.3. Large right pleural effusion. Suspected plaque-like pleural thickening in the right hemithorax.4. Bilateral, indeterminate renal lesions for which further evaluation with renal protocol CT abdomen with without contrast is recommended.5. Status post bilateral inguinal herniorrhaphies. Findings are com patible with fat containing, bilateral, direct inguinal hernias medial to the postsurgical change. There is bulging of the bladder towards the left inguinal hernia. Hx of smoking but quit in the 80s No alcohol use S/p Thoracentesis by Office Administration 07/25/21 with removal of 2.3L Fluid appear exudative per analysis Follow up cytology Post thoracentesis XR show improved aeration of right lung Patient was seen by Oncologist and plan to follow up with [facility] Oncology for further eval and management Patient had 2 step done which did not show any oxygen requirement (4) Renal lesion: - Seen on CT as described above, possible mets? - Cr and BUN stable currently (5) Hernia: Noted on imaging No strangulation seen on imaging studies as above. (6) HTN (hypertension): - Cont metoprolol 25 mg daily, asa 81 mg daily (7) HLD (hyperlipidemia): - Cont pravastatin 10 mg daily (8) BPH (benign prostatic hyperplasia): - Hx of such, cont finasteride, tamsulosin (9) PAT (paroxysmal atrial tachycardia): Reviewed recent Holter monitor with Substation Wire[employer] Dr Peralta Mostly supraventricular tachycardias, some PAC/PVC/artefact Continue home metoprolol. (10) Mitral valve regurgitation: Old Echo reviewed from 02/2020 showed EF of 60-64, mildly enlarged LA, mild MR and TR Total Time Total Time Spent Total Time Spent (In Minutes): 45 Total Time Includes: Examination of the Patient, Discharge Planning, Medication Reconciliation and Communication With Other Providers Discharge Plan Discharge Items Patient Disposition: Home - Self-Care Reason For Visit: SOB, ABD PAIN Discharge Diagnosis: Right lung collapse Right lung mass suspicious fo rmalignancy Right pleural effusion Status post thoracentesis Activity: Resume your previous activity Non-emergency contact: Primary Care Provider and Oncologist Call non-emergency contact if: you have any medication questions and your symptoms worsen Follow-up/Referrals: Graham Wilhelm DO [Primary Care Provider] - Melida Cornejo MD [Physician] - Diet: Heart Healthy Addtl Attending Provider Instructions: Mr Boo You were referred to the hospital due to abnormal outpatient scans when you were being evaluated for abdominal pain and shortness of breath. You were found to have a lung mass suspicious for cancer, right pleural effusion with collapse of your right lung. You had thoracentesis (fluid removal from your chest) and your symptoms resolved. You were evaluated by Oncologist (Cancer specialist), Melida Sebastian. It is very important that you follow up with the Oncologist in the office for continued evaluation and management. It was a pleasure taking care of you. Pending Studies at Discharge: Yes Studies:: Fluid cytology Stand-Alone Forms: [facility], Smoking Cessation Medications and DC Order Prescriptions: Continued omeprazole 40 mg capsule,delayed release(DR/EC) 40 mg PO DAILY@1800 RF: 0 aspirin 81 mg Tablet,Delayed Release (Dr/Ec) 81 mg PO QAM RF: 0 pravastatin 10 mg tablet 10 mg PO QAM RF: 0 tamsulosin 0.4 mg capsule 0.4 mg PO DAILY@1800 RF: 0 metoprolol succinate 25 mg tablet extended release 24 hr 25 mg PO QAM RF: 0 finasteride 5 mg tablet 5 mg PO QAM RF: 0 Flonase 50 mcg 2 spray DANE DAILY RF: 0 Discharge Orders: Discharge Order (Routine); Ordered 07/27/21 Ordered By: Airam Esquivel/Other Patient Handouts: What Is Palliative Care, Controlling Your Cholesterol, ED Shortness of Breath (Dyspnea) Admission Data Admit Date/Time: 07/25/21 12:53 Attending Provider: Airam Ward I. Admit Provider: Henri Abad Primary Care Provider: Graham Wilhelm Other Providers: Anamika Wheeler ; Roscoe Dozier ; Vicky Watson ; Melida Cornejo Other Interventions: Discharge Summary Assessment (RN) Last Done: 07/27/21 12:41
--- NOTE | 2021-08-01 05:14 | Coding Query ---
CODING QUERY To promote full compliance with coding requirements relating to patient care, provider participation is requested in all cases of director of search engine marketing uncertainty. Please assist us with the question(s) below: Coding Question(s): Pt admitted with large pleural effusion. Diagnostic thoracentesis done - . Oncology consulted stated malignant pleural effusion in the setting of possible lung cancer. Please review pathology report and document, if known or suspected, the etiology of the pleural effusion. Thanks for your help. Tyrsee Hodges [facility] Physician's Response(s): Patient was managed for possible lung cancer with possible malignant effusion At the time of discharge, pleural fluid cytology was not available. Based on report which has finalized now, cytology showed metastatic adenocarcinoma of lung Principal Diagnosis: "that condition established after study, to be chiefly responsible for occasioning the admission of the patient to the hospital for care." Co-Existing Principal Diagnosis: "when two or more diagnoses equally meet the criteria for principal diagnosis as determined by the circumstances of admission, diagnostic work up, and/or therapy provided, and the Alphabetic Index, Tabular List, or another coding guideline does not provide sequencing direction, any one of the diagnoses may be sequenced first." "When the physician has documented what appears to be a current diagnosis in the body of the record, but has not included the diagnosis in the final diagnostic statement, the physician should be asked whether the diagnosis should be added." (Source Coding Clinic 2 QTR90. p3-4) RUIZ
== END 2021-07-27 13:25 | disposition home or self-care (01) | DRG 181 ==
LOC: ED 09:57 → SUATTDRO 12:53 → 2S 12:53